=== PATIENT | male | born 1940 | race Caucasian/White ===

== ENCOUNTER → 2021-09-10 | Outpatient (REF) | payer MEDICARE | LOC: M LAB REF 13:02 | PROVIDERS: ATTEND Nurse Practitioner Family | DX: N18.2 Chronic kidney disease, stage 2 (mild) (principal) ==

== ENCOUNTER → 2022-08-28 | Outpatient (REF) | payer MEDICARE ==
[2022-08-28 18:24] LABS: RBC, URINE TNTC /hpf (0-3); WBC, URINE TNTC /hpf (0-3)
[2022-08-28 18:27] LABS: BACTERIA, URINE MOD AMOUNT; SQUAMOUS EPITHELIAL CELL URINE NONE SEEN /hpf (SMALL AMT)
[2022-08-28 18:28] LABS: YEAST, URINE SMALL AMOUNT
== END ==
LOC: M LAB REF 16:42
PROVIDERS: ATTEND Internal Medicine Nephrology
DX: R82.81 Pyuria (principal)

== ENCOUNTER → 2023-10-26 | Outpatient (REF) | payer MEDICARE ==
[2023-10-26 18:26] LABS: BACTERIA, URINE AUTO 2+ (NEGATIVE); RBC, URINE AUTO TNTC /HPF (0-3); SQUAMOUS EPITHELIAL CELL UR AU 0 /HPF (0-6); WBC, URINE AUTO TNTC /HPF (0-3)
== END ==
LOC: EEVIPCON 17:01 → M LAB REF 17:01
PROVIDERS: ATTEND Internal Medicine Nephrology
DX: R82.81 Pyuria (principal); B95.2 Enterococcus as the cause of diseases classified elsewhere

== ENCOUNTER → 2024-03-11 | Outpatient (REF) | payer MEDICARE ==
[2024-03-11 18:47] LABS: BACTERIA, URINE AUTO 1+ (NEGATIVE); MUCUS, URINE SMALL (NEGATIVE); RBC, URINE AUTO 48 /HPF (0-3); SQUAMOUS EPITHELIAL CELL UR AU 0 /HPF (0-6); WBC, URINE AUTO TNTC /HPF (0-3)
== END ==
LOC: M LAB REF 16:54
PROVIDERS: ATTEND Internal Medicine Nephrology
DX: E87.6 Hypokalemia (principal); R30.0 Dysuria